=== PATIENT | male | born 1995 | race Two or more races ===

== ENCOUNTER 2019-06-09 16:56 | Emergency (ER) | payer OTHER ==
[~2019-06-09] VITALS: Ht 185.4 cm; Wt 77.1 kg
--- NOTE | 2019-06-09 17:05 | NUR ---
PT CAME IN AMBULATORY W/ STABLE GAIT Patient is AOx4, speaking in complete sentences, speech is clear. Patient is able to follow /comprehend directions. Gait is stable. No cardiovascular distress noted. Rate and rhythm are regular. No CP. No respiratory distress noted. Respirations even & unlabored with symmetrical chest rise. No adventitious sounds noted. Chief complaint: SP FALL 3DAYS AGO STILL C/O INTERMITTENT HEADACHE, DOES NOT REMEMBER CHANGES IN LOC Patient denies Fever/Chills. DENIES NVD. No recent travel. No pertinent medical history/NKDA. -ETOH/denies drug use. Patient is continent of bowel and bladder function.
--- NOTE | 2019-06-09 17:50 | NUR ---
PT CAME BACK FROM CT VIA WHEELCHAIR RA ACC BY TECH MONITORED ACCORDINGLY [id number] UP FALL PREC KEPT WARM DRY AND COMFORTABLE
--- NOTE | 2019-06-09 18:07 | NUR ---
Patient discharged to home in stable condition. Written and verbal after care instructions given. Patient verbalizes understanding of instructions. Stressed follow up or return to ER for worsening s/s. Ambulates with steady gait. Patient refused to sign discharge paper work.
[2019-06-09 18:09] VITALS: BP 115/70
== END 2019-06-09 18:16 | disposition home or self-care (01) ==
LOC: ER 16:59
DX: S09.90XA Unspecified injury of head, initial encounter (principal); R51 Headache; W01.0XXA Fall on same level from slipping, tripping and stumbling without subsequent striking against object, initial encounter; Y92.89 Other specified places as the place of occurrence of the external cause
CPT/HCPCS: 70450; A4663